=== PATIENT | male | born 1980 | race Two or more races ===

== ENCOUNTER 2024-03-01 13:33 | Emergency (ER) | payer OTHER ==
[~2024-03-01] VITALS: Ht 172.7 cm; Wt 91.8 kg
[2024-03-01] MEDS ORDERED: PRED20TA2 PO (14:05)
[2024-03-01] MEDS ORDERED: VALA1TAB PO (14:06)
[2024-03-01 14:07] VITALS: BP 136/82; PULSE 70; RESP 15; TEMP 98.1; O2SAT 96
[2024-03-01] MEDS: predniSONE 20 MG TAB PO ONE (14:10)
[2024-03-01] MEDS: ACYCLOVIR 400 MG TAB PO ONE (14:10)
== END 2024-03-01 14:27 | disposition home or self-care (01) ==
LOC: ER 13:33
DX: G51.0 Bell's palsy (principal)
CPT/HCPCS: 70450; 71045; 82962; 93005; 99284; J7512